=== PATIENT | female | born 1945 | race Caucasian/White ===

== ENCOUNTER → 2016-07-27 | Outpatient (CLI) | payer MEDICARE, BC ==
--- NOTE | 2016-07-28 10:07 | MAM ---
History: Well woman exam. Date of exam: 07/27/2016 Services provided: Bilateral full field digital screening mammography. CAD, the images were reviewed with R2 computer aided detection. FINDINGS: Glandular tissue is scattered glandular contour with increased mammographic density. Exam is compared with 2014 study. Stable glandular distribution. No dominant mass, architectural distortion or clustered microcalcification. IMPRESSION: Benign exam Recommendation: Routine annual mammography BIRAD CATEGORY: 2 BENIGN Electronically signed by: Dasha Phillip MD 07/28/2016 10:07 AM CDT
== END ==
LOC: MAMMO 15:17
PROVIDERS: ATTEND Family Medicine
DX: Z12.31 Encounter for screening mammogram for malignant neoplasm of breast (principal)

== ENCOUNTER 2016-12-14 05:51 | Day surgery (SDC) | payer MEDICARE, BC ==
[2016-12-14] MEDS ORDERED: LACTATED RINGERS 1,000 ML ONE (06:09)
[2016-12-14] MEDS ORDERED: MIDAZOLAM INJ 5 MG/5 ML VIAL ONE (08:12)
[2016-12-14] MEDS ORDERED: fentaNYL CITRATE INJ 50 MCG/ML AMP ONE (08:12)
[2016-12-14] MEDS ORDERED: DEXTROSE 50% 25 GM/50 ML SYG IV ONE (08:46)
[2016-12-14 09:14] VITALS: BP 158/75; TEMP 97; O2SAT 98
[2016-12-14] MEDS ORDERED: LIDOCAINE 1% 10 ML VIAL INJ ONE (10:00)
[2016-12-14] MEDS ORDERED: PROPOFOL 200 MG/20 ML VIAL IV ONE (10:00)
--- NOTE | 2016-12-14 10:14 | OP ---
DATE OF PROCEDURE: 12/14/16 PREOPERATIVE DIAGNOSIS: 1. Fecal occult blood positive. POSTOPERATIVE DIAGNOSIS: 1. Colonic polyps. PROCEDURE: 1. Colonoscopy plus polypectomy. SURGEON: Kvng Platt MD. COMPLICATIONS: None apparent. BLOOD LOSS: None. MEDICATIONS: Monitored anesthesia care. DESCRIPTION OF PROCEDURE: Informed consent was obtained prior to sedation. The preprocedure cardiopulmonary assessment was satisfactory. The patient was placed in the left lateral decubitus position and was sedated. A digital rectal exam was unremarkable. The tip of the Olympus colonoscope was inserted in the rectum and guided over to the cecum. The cecum was identified by locating the ileocecal valve and appendiceal orifice. Prep was good. The mucosa of the cecum, ascending colon, hepatic flexure, transverse colon, splenic flexure, descending colon and sigmoid colon was closely examined. Direct and retroflexed views of the rectum were examined. The patient had two colonic polyps. They both appeared to be sessile, serrated adenomas. One was in the ascending colon and was about 6 mm in size and was removed with a hot snare. The second polyp was about 1.5 cm and pretty flat. I removed the polyp in a piecemeal fashion with a hot snare. Just to make sure there was no residual tissue, I used the hot snare and burned the tissue around the base of the polypectomy site. There were no other significant findings noted. RECOMMENDATIONS: Followup polyp pathology. #[id number] cc: Rui Da Silva MD [facility]
== END 2016-12-14 10:20 | disposition home or self-care (01) ==
LOC: AMB 05:51
PROVIDERS: ATTEND Internal Medicine Gastroenterology
DX: K92.1 Melena (principal); D12.2 Benign neoplasm of ascending colon; D12.4 Benign neoplasm of descending colon; G89.29 Other chronic pain; K58.1 Irritable bowel syndrome with constipation; Z79.899 Other long term (current) drug therapy
CPT/HCPCS: 00810; 45385; 88305; J2250; J3010; J3490; J7120

== ENCOUNTER → 2017-03-20 | Outpatient (CLI) | payer MEDICARE, BC | END | disposition home or self-care (01) | LOC: GMAB 11:20 | PROVIDERS: ATTEND Family Medicine | DX: Z79.899 Other long term (current) drug therapy (principal); E78.2 Mixed hyperlipidemia; R30.0 Dysuria ==

== ENCOUNTER → 2017-08-24 | Outpatient (CLI) | payer MEDICARE, BC ==
--- NOTE | 2017-08-25 16:45 | MAM ---
EXAM DESCRIPTION: 3D Screening BILATERAL : Digital Mammography. CLINICAL HISTORY: 71 years Female SCREENING . No complaints. Sister with breast cancer. Postmenopausal. Has taken HRT 5 or more years ago. COMPARISON: 2-D digital screening bilateral study 07/27/2016. Report from prior examination also reviewed. TECHNIQUE: Bilateral CC and MLO projection full-field images, 3-D tomosynthesis digital mammographic technique. Also bilateral synthesized CC/ MLO full-field images. CAD not utilized. FINDINGS: The breast parenchymal density pattern is: Extremely dense breast tissue, which lowers the sensitivity of mammography. No skin thickening or nipple retraction left axillary lymph node. Focal asymmetry at the 600 clock position of the right breast approximately 5 cm from the nipple. Middle third of the breast. Not as well seen on the prior study. No focal, stellate mass or density, focal asymmetry , and no suspicious microcalcifications left breast. IMPRESSION: BI-RADS CATEGORY: 0 - INCOMPLETE- Need additional imaging evaluation. FOLLOW-UP: Recall for additional imaging: Bilateral 3-D tomosynthesis full field LM images. Targeted right breast ultrasound if indicated by diagnostic images.. Written communication concerning the IMPRESSION and Follow-up, will be mailed to the patient and referring health care provider. Electronically signed by: Lyndon Bocanegra MD 08/25/2017 4:44 PM CDT
== END ==
LOC: MAMMO 11:30
PROVIDERS: ATTEND Family Medicine
DX: Z12.31 Encounter for screening mammogram for malignant neoplasm of breast (principal)

== ENCOUNTER → 2017-08-29 | Outpatient (CLI) | payer MEDICARE, BC ==
--- NOTE | 2017-08-29 20:57 | MRI ---
EXAM DESCRIPTION: Lumbar Spine w/o Contrast : Magnetic Resonance Imaging. CLINICAL HISTORY: LUMBAR RADICULOPATHY COMPARISON: MRI lumbar spine 09/19/2011. TECHNIQUE: Multiplanar, multiple standard sequences, non contrast MRI, lumbar spine. FINDINGS: L5-S1: Disc desiccation posterior broad-based bulge. Impressing on the thecal sac. Hypertrophy of the bilateral flavum ligaments and right facet arthrosis. Moderate canal narrowing. Moderate right foraminal narrowing and left foraminal stenosis. This has progressed since the prior study. L4-5: disc desiccation and disc space preserved. Minimal posterior broad-based bulge. Bilateral flavum ligament hypertrophy. Prior partial right laminectomy bases to prior study. Broad-based disc bulge into the right foramen with disc spur encroachment on the nerve root and foraminal stenosis. This has progressed since the prior study. Left foraminal narrowing. L3-4: Disc desiccation and minimal posterior bulge. Also anterior bulge. Posterior flavum ligament hypertrophy bilaterally. Mild canal narrowing more left than right. Facets are negative. L2-3: Normal signal in the disc and disc space preserved. Minimal bilateral facet arthrosis. Canal and foramina are patent. L1-2: Moderate disc space loss and disc desiccation. Anterior disc bulging and endplate spurs. Schmorl's nodes. Posterior broad-based bulge. Bilateral flavum ligament hypertrophy. Conus terminates at this level. Mild to moderate narrowing and mild bilateral foraminal narrowing. This has progressed since the prior study. Normal signal T12-L1 disc and disc space preserved. Posterior elements are unremarkable. Canal and foramina are patent. No scoliosis. Paravertebral soft tissues show muscle atrophy. Questionable dilation of the common bile duct.. Otherwise normal marrow signal in the remaining vertebral bodies and the posterior elements. Vertebral bodies are not compressed at any level. IMPRESSION: 1. Multiple levels of disc desiccation and disc bulging. 2. Posterior broad-based L5-S1 disc bulge. Left foraminal stenosis has progressed since the prior study. Correlate for left L5 radiculopathy. 3. Spondylosis at L1 to. Posterior broad-based disc bulge. Mild to moderate canal narrowing and bilateral mild foraminal narrowing has progressed since the prior study. Electronically signed by: Lyndon Bocanegra MD 08/29/2017 8:56 PM CDT
== END ==
LOC: MRI 13:00
PROVIDERS: ATTEND Family Medicine
DX: M51.17 Intervertebral disc disorders with radiculopathy, lumbosacral region (principal); M47.26 Other spondylosis with radiculopathy, lumbar region

== ENCOUNTER → 2018-04-04 | Outpatient (CLI) | payer MEDICARE, BC | LOC: GMAE 10:59 | PROVIDERS: ATTEND Family Medicine | DX: R94.6 Abnormal results of thyroid function studies (principal); Z79.899 Other long term (current) drug therapy ==

== ENCOUNTER → 2019-04-15 | Outpatient (CLI) | payer MEDICARE, BC | LOC: GMAE 10:17 | PROVIDERS: ATTEND Family Medicine | DX: R94.6 Abnormal results of thyroid function studies (principal); Z79.899 Other long term (current) drug therapy ==

== ENCOUNTER → 2019-09-10 | Outpatient (CLI) | payer MEDICARE, BC ==
--- NOTE | 2019-09-11 13:39 | MAM ---
EXAM DESCRIPTION: 3D Screening BILATERAL : Digital Mammography. CLINICAL HISTORY: 73 years Female ANNUAL SCREENING . No complaints. No personal history of breast cancer. Female sibling with breast cancer age 56. Menarche age 10. Childbirth age 19. Menopause age 29.. Lifetime risk of developing breast cancer (Tyrer-Cuzick model)(%): 8.4. COMPARISON: Bilateral screening digital breast tomosynthesis August 2018 and August 2017. Right breast diagnostic tomosynthesis and directed ultrasound August 2017.. TECHNIQUE: Bilateral CC and MLO projection full-field images, digital tomosynthesis mammographic technique. Bilateral digital 2-D full-field MLO images. CAD available for 2-D images. FINDINGS: The breast parenchymal density pattern is: Heterogeneously dense breast tissue, which may obscure small masses. No skin thickening or nipple retraction. Stable focal asymmetry inferior anterior third right breast. Bilateral solitary microcalcifications. No new focal, stellate mass or density, focal asymmetry , and no suspicious microcalcifications bilaterally. Stable mammograms compared to prior study. IMPRESSION: Benign exam. BIRAD CATEGORY: 2 BENIGN FINDINGS. RECOMMENDATIONS: FOLLOW UP: Routine digital bilateral mammographic screening, one year interval from date Written communication explaining the IMPRESSION and follow-up, will be mailed to the patient and referring health care provider. According to the [employer], yearly mammograms are recommended starting at age 40 and continuing as long as a woman is in good health. Any breast change noted on a breast self-exam should be reported promptly to the patient's healthcare provider. Breast MRI is recommended for women with an approximately 20-25% or greater lifetime risk of breast cancer, including women with a strong family history of breast or ovarian cancer and women who have been treated for Hodgkin's disease. A negative mammographic report should not delay tissue diagnosis in patients with significant clinical history or physical findings. Extremely dense breast tissue limits the sensitivity of digital mammography. Electronically signed by: Lyndon Bocanegra MD 09/11/2019 1:38 PM CDT
== END ==
LOC: MAMMO 10:35
PROVIDERS: ATTEND Family Medicine
DX: Z12.31 Encounter for screening mammogram for malignant neoplasm of breast (principal)

== ENCOUNTER 2020-02-05 05:16 | Day surgery (SDC) | payer MEDICARE, BC ==
[2020-02-05] MEDS ORDERED: LACTATED RINGERS 1,000 ML ONE (05:49)
[2020-02-05] MEDS ORDERED: LIDOCAINE 1% 10 ML VIAL INJ ONE (07:00)
[2020-02-05] MEDS ORDERED: PROPOFOL 200 MG/20 ML VIAL IV ONE (07:00)
--- NOTE | 2020-02-05 09:01 | OP ---
DATE OF PROCEDURE: 02/05/20 PREOPERATIVE DIAGNOSIS: 1. History of polyps. POSTOPERATIVE DIAGNOSIS: 1. Transverse colonic polyp. 2. Sigmoid diverticulosis. PROCEDURE: 1. Colonoscopy plus polypectomy. SURGEON: Kvng Platt MD. COMPLICATIONS: None apparent. BLOOD LOSS: None. MEDICATIONS: Monitored anesthesia care. DESCRIPTION OF PROCEDURE: Informed consent was obtained prior to sedation. The preprocedure cardiopulmonary assessment was satisfactory. The patient was placed in the left lateral decubitus position and was sedated. A digital rectal exam was unremarkable. The tip of the Olympus colonoscope was inserted in the rectum and guided over to the cecum. The cecum was identified by locating the ileocecal valve and appendiceal orifice. The [place] Bowel Preparatory Score was excellent. The score was 9. Retroflexed view of the right colon was obtained. The ileocecal valve was intubated and the few distal centimeters of the terminal ileum were inspected and were unremarkable. The mucosa of the cecum, ascending colon, hepatic flexure, transverse colon, splenic flexure, descending colon and sigmoid colon was closely examined. Direct and retroflexed views of the rectum were obtained. The patient had a 1 cm sessile polyp in the transverse colon that was removed in a piecemeal fashion with a hot snare. The tissue was recovered. The patient had sigmoid diverticulosis. Otherwise, her colonoscopy was unremarkable. RECOMMENDATIONS: We will followup the pathology on the polyp. The patient is 74 years old now. We will make a determination on the need for followup colonoscopy when we get the pathology results back. #[id number] cc: Marimar West MD [facility]
[2020-02-05 09:24] VITALS: BP 163/89; TEMP 97.4; O2SAT 99
== END 2020-02-05 09:18 | disposition home or self-care (01) ==
LOC: AMB 05:16
PROVIDERS: ATTEND Internal Medicine Gastroenterology
DX: Z12.11 Encounter for screening for malignant neoplasm of colon (principal); D12.3 Benign neoplasm of transverse colon; K57.30 Diverticulosis of large intestine without perforation or abscess without bleeding; Z86.010 Personal history of colon polyps; Z80.0 Family history of malignant neoplasm of digestive organs; Z79.899 Other long term (current) drug therapy
CPT/HCPCS: 00812; 45385; 88305; J7120

== ENCOUNTER → 2020-05-22 | Outpatient (CLI) | payer MEDICARE, BC | LOC: GMAE 11:52 | PROVIDERS: ATTEND Family Medicine | DX: Z79.899 Other long term (current) drug therapy (principal); E78.2 Mixed hyperlipidemia ==